=== PATIENT | female | born 1975 | race Asian ===

== ENCOUNTER 2016-11-24 10:24 | Outpatient (CLI) | payer OTHER ==
[~2016-11-24 10:24] MED LIST: PROVENTIL IH ONE
--- NOTE | 2016-11-24 13:00 | XRay Report ---
Lumbar spine 3 views: History: Lumbar pain. Findings: Normal height of vertebral body and intervertebral disc. Normal articular surfaces. No fracture. No soft tissue calcification. Impression: No significant bony or articular abnormality lumbar spine.
--- NOTE | 2016-11-24 16:09 | XRay Report ---
: History: Chest pain. Findings: Cardiomegaly. Trachea is midline. No consolidation, pneumothorax or pleural effusion. Impression: Cardiomegaly. No acute lung changes.
== END 2016-11-24 10:25 | disposition home or self-care (01) ==
LOC: PF 10:24
PROVIDERS: ATTEND Internal Medicine
DX: I10 Essential (primary) hypertension (principal); I51.7 Cardiomegaly; L93.0 Discoid lupus erythematosus; R60.9 Edema, unspecified
CPT/HCPCS: 71020; 72100; 94060; 94640

== ENCOUNTER 2017-01-19 11:41 | Emergency (ER) | payer MEDICAID, OTHER ==
[2017-01-19] MEDS ORDERED: NACL 0.9% 500 ML 500 ML IV ONE (12:29)
[2017-01-19] MEDS ORDERED: VANCOMYCIN/NS 1 GM/250 ML 1 GM/250 ML BAG IV ONE (12:29)
--- NOTE | 2017-01-19 12:32 | Emergency Department Report ---
- General Chief complaint: Extremity Injury, Lower Stated complaint: RT LEG INFECTION Time Seen by Provider: 01/19/17 12:24 Source: patient, EMS Mode of arrival: Stretcher Limitations: Physical Limitation - History of Present Illness Initial comments: lower leg pain and swelling / redness not improving with outpatient abx -: Gradual Location: RLE Severity: moderate Severity scale (0 -10): 2 Consistency: constant Improves with: none Worsens with: none Associated Symptoms: fever/chills. denies: chest pain, confusion, dark stools, diaphoresis, dysuria, easy bruising, shortness of breath, syncope - Related Data Previous Rx's Medication Instructions Recorded Last Taken Type Sulfamethoxazole/Trimethoprim 1 each PO BID #20 tablet 01/19/17 Unknown Rx [Bactrim DS TAB] Allergies Allergy/AdvReac Type Severity Reaction Status Date / Time No Known Allergies Allergy Unverified 11/24/16 10:25 ED Review of Systems ROS: Stated complaint: RT LEG INFECTION Other details as noted in HPI Comment: All other systems reviewed and negative Constitutional: denies: chills, fever Eyes: denies: eye pain, eye discharge, vision change ENT: denies: ear pain, throat pain Respiratory: denies: cough, shortness of breath, wheezing Cardiovascular: denies: chest pain, palpitations Endocrine: no symptoms reported Gastrointestinal: denies: abdominal pain, nausea, diarrhea Genitourinary: denies: urgency, dysuria, discharge Musculoskeletal: denies: back pain, joint swelling, arthralgia Skin: denies: rash, lesions Neurological: denies: headache, weakness, paresthesias Psychiatric: denies: anxiety, depression Hematological/Lymphatic: denies: easy bleeding, easy bruising ED Past Medical Hx - Past Medical History Hx Hypertension: Yes - Surgical History Past Surgical History?: No - Social History Smoking Status: Never Smoker Substance Use Type: None - Medications Home Medications: Home Medications Medication Instructions Recorded Confirmed Last Taken Type Sulfamethoxazole/Trimethoprim 1 each PO BID #20 tablet 01/19/17 Unknown Rx [Bactrim DS TAB] ED Physical Exam - General Limitations: Physical Limitation General appearance: alert, in no apparent distress - Head Head exam: Present: atraumatic, normocephalic - Eye Eye exam: Present: normal appearance - ENT ENT exam: Present: mucous membranes moist - Neck Neck exam: Present: normal inspection - Respiratory Respiratory exam: Present: normal lung sounds bilaterally. Absent: respiratory distress - Cardiovascular Cardiovascular Exam: Present: regular rate, normal rhythm. Absent: systolic murmur, diastolic murmur, rubs, gallop - GI/Abdominal GI/Abdominal exam: Present: soft, normal bowel sounds - Extremities Exam Extremities exam: Present: normal inspection, full ROM, tenderness, pedal edema - Back Exam Back exam: Present: normal inspection - Neurological Exam Neurological exam: Present: alert, oriented X3 - Psychiatric Psychiatric exam: Present: normal affect, normal mood - Skin Skin exam: Present: warm, dry, erythema, vesicles, abrasion, other (right lower leg concistent with developing cellulitis). Absent: rash ED Course Vital Signs 01/19/17 01/19/17 01/19/17 12:00 12:06 14:09 Temperature 98.5 F 97.7 F Pulse Rate 81 69 Respiratory 20 16 Rate Blood Pressure 127/46 Blood Pressure 126/47 [Right] O2 Sat by Pulse 100 100 Oximetry ED Medical Decision Making - Lab Data Result diagrams: 01/19/17 12:53 01/19/17 12:53 - Medical Decision Making Talked to patient for her chronic problem on her right lower leg , dose of vanco given here , no reason fro admission at this time , i consulted dr. jones and he recommends to follow up with wound care Critical care attestation.: If time is entered above; I have spent that time in minutes in the direct care of this critically ill patient, excluding procedure time. ED Disposition Clinical Impression: Cellulitis and abscess of leg Disposition: DISCHARGED TO HOME OR SELFCARE Is pt being admited?: No Does the pt Need Aspirin: No Condition: Good Instructions: Cellulitis (ED) Prescriptions: Sulfamethoxazole/Trimethoprim [Bactrim DS TAB] 1 each PO BID #20 tablet Referrals: PRIMARY CARE, [Primary Care Provider] - 3-5 Days [facility] [Outside] - 3-5 Days Time of Disposition: 15:20
[2017-01-19 13:27] LABS: Albumin 3.1 g/dL (3.9-5); Albumin/Globulin Ratio 0.8 %; BUN/Creatinine Ratio 18.63; Bilirubin,Total 0.5 mg/dL (0.1-1.2); C-Reactive Protein 3.7 mg/dL (0.00-1.30); Calcium 8.5 mg/dL (8.4-10.2); Chloride 97.6 mmol/L (98-107); Potassium 4.5 mmol/L (3.6-5.0); Total Protein 7.2 g/dL (6.3-8.2)
[2017-01-19 14:04] LABS: Erythrocyte Sedimentation Rate 70 mm/Hr (0-20)
[2017-01-19 14:34] LABS: Mean Corpuscular HGB Conc 29 % (30-34); Platelet Count 224 K/mm3 (140-440); White Blood Count 7.5 K/mm3 (4.5-11.0)
[2017-01-19 14:36] LABS: Hematocrit 22.7 % (30.3-42.9); Hemoglobin 6.5 gm/dl (10.1-14.3); Mean Corpuscular Hemoglobin 19 pg (28-32); Mean Corpuscular Volume 65 fl (79-97); Red Cell Distribution Width 30.6 % (13.2-15.2)
[2017-01-19 14:44] LABS: Basophils % (Manual) 0 % (0.0-1.8); Blastocytes % (Manual) 0 %
[2017-01-19 14:45] LABS: Anisocytosis 3+; Hypochromasia 2+; Microcytosis 1+
[2017-01-19 14:46] LABS: Diff Status Complete; Elliptocytes Few; Ovalocytes 1+
[2017-01-19 16:09] VITALS: BP 117/49
== END 2017-01-19 16:09 | disposition home or self-care (01) ==
LOC: ED 11:41
DX: L03.115 Cellulitis of right lower limb (principal); I10 Essential (primary) hypertension
CPT/HCPCS: 36415; 80053; 82140; 85007; 85025; 85652; 86140; 87040; 93971; 96365; 99284; J3370; J7040

== ENCOUNTER 2022-04-12 22:41 | Inpatient (IN) | payer MEDICARE ==
[2022-04-13] MEDS ORDERED: ASPIRIN 81 MG TAB CHEW PO ONE (00:15)
--- NOTE | 2022-04-13 00:20 | Emergency Department Report ---
ED Chest Pain HPI - General Chief Complaint: Chest Pain Stated Complaint: CHEST PAIN X 2 DAYS Time Seen by Provider: 04/13/22 00:02 Source: patient Mode of arrival: Stretcher Limitations: No Limitations - History of Present Illness Initial Comments: Patient is 47 years old morbidly obese female with history of congestive heart failure, lymphedema, hypertension and COPD. Patient brought to the emergency room via EMS from home for evaluation of left-sided chest pain, pressure with no radiation. Patient stated that pain started yesterday. Patient denies any shortness of breath, fever, chills or cough. No abdominal pain, nausea or vomiting. MD Complaint: chest pain - Related Data Previous Rx's Medication Instructions Recorded Last Taken Type Sulfamethoxazole/Trimethoprim 1 each PO BID #20 tablet 01/19/17 Unknown Rx [Bactrim DS TAB] HYDROcodone/APAP 5-325 [[place] 1 each PO Q6HR PRN #14 tablet 08/17/21 Unknown Rx 5/325] Ondansetron [Zofran Odt] 4 mg PO Q8HR PRN #15 tab.rapdis 08/17/21 Unknown Rx Allergies Allergy/AdvReac Type Severity Reaction Status Date / Time No Known Allergies Allergy Unverified 01/28/22 04:16 Heart Score - HEART Score History: Moderately suspicious EKG: Non-specific Age: 45-65 Risk factors: > 3 risk factors or hx of atherosclerotic disease Troponin: < normal limit HEART Score: 5 - EKG Read Time Time EKG Completed: 23:56 EKG Read Time: 23:57 - Critical Actions Critical Actions: 4-6 pts:12-16.6% risk of adverse cardiac event. Should be admitted ED Review of Systems ROS: Stated complaint: CHEST PAIN X 2 DAYS Other details as noted in HPI Comment: All other systems reviewed and negative Constitutional: denies: chills, fever Respiratory: denies: cough, shortness of breath, SOB with exertion Cardiovascular: chest pain, dyspnea on exertion. denies: palpitations Gastrointestinal: denies: abdominal pain, nausea, vomiting, diarrhea, constipation Musculoskeletal: denies: back pain Neurological: denies: headache, weakness, numbness, paresthesias ED Past Medical Hx - Past Medical History Previous Medical History?: Yes Hx Hypertension: Yes Hx Congestive Heart Failure: Yes Hx COPD: Yes Additional medical history: LYMPHEDEMA. MORBID OBESITY - Surgical History Past Surgical History?: No - Social History Smoking Status: Never Smoker Substance Use Type: None - Medications Home Medications: Home Medications Medication Instructions Recorded Confirmed Last Taken Type Sulfamethoxazole/Trimethoprim 1 each PO BID #20 tablet 01/19/17 Unknown Rx [Bactrim DS TAB] HYDROcodone/APAP 5-325 [[place] 1 each PO Q6HR PRN #14 tablet 08/17/21 Unknown Rx 5/325] Ondansetron [Zofran Odt] 4 mg PO Q8HR PRN #15 tab.rapdis 08/17/21 Unknown Rx ED Physical Exam - General Limitations: No Limitations General appearance: alert, in no apparent distress - Head Head exam: Present: atraumatic, normocephalic, normal inspection - Eye Eye exam: Present: normal appearance - ENT ENT exam: Present: normal exam, normal orophraynx, mucous membranes moist - Neck Neck exam: Present: normal inspection, full ROM. Absent: tenderness, meningismus - Respiratory Respiratory exam: Present: normal lung sounds bilaterally - Cardiovascular Cardiovascular Exam: Present: regular rate, normal rhythm, normal heart sounds - GI/Abdominal GI/Abdominal exam: Present: soft, normal bowel sounds. Absent: distended, tenderness, guarding, rebound, rigid, organomegaly, mass, bruit, pulsatile mass, hernia - Extremities Exam Extremities exam: Present: pedal edema, other (Significant lymphedema.). Absent: tenderness - Back Exam Back exam: Present: normal inspection, full ROM. Absent: CVA tenderness (R), CVA tenderness (L) - Neurological Exam Neurological exam: Present: alert, oriented X3, CN II-XII intact - Psychiatric Psychiatric exam: Present: normal mood ED Course Vital Signs 04/12/22 04/13/22 23:53 00:38 Temperature 98 F Pulse Rate 74 70 Respiratory 18 16 Rate Blood Pressure 130/76 Blood Pressure 117/62 [Left] O2 Sat by Pulse 98 98 Oximetry ED Medical Decision Making - Lab Data Result diagrams: 04/13/22 00:33 04/13/22 00:33 - EKG Data -: EKG Interpreted by Tn EKG shows normal: sinus rhythm Rate: normal - EKG Data Interpretation: no acute changes - Radiology Data Radiology results: report reviewed - Medical Decision Making Patient is 47 years old morbidly obese female with history of congestive heart failure, lymphedema, hypertension and COPD. Patient brought to the emergency room via EMS from home for evaluation of left-sided chest pain, pressure with no radiation. Patient stated that pain started yesterday. Patient denies any shortness of breath, fever, chills or cough. No abdominal pain, nausea or vomiting. EKG showed no ST elevation. Labs reviewed and is unremarkable including a ne gative troponin. Patient received aspirin 325 mg. I discussed the patient with Dr. Berman, he agreed to admit the patient to medical service for further management. Critical care attestation.: If time is entered above; I have spent that time in minutes in the direct care of this critically ill patient, excluding procedure time. ED Disposition Clinical Impression: Acute chest pain Disposition: ADMITTED INPATIENT Is pt being admited?: Yes Condition: Stable Instructions: Chest Pain (ED) Referrals: CAROLYN GALINDO MD [Primary Care Provider] - 3-5 Days
[2022-04-13 00:46] LABS: Basophils % (Auto) 0.2 % (0.0-1.8); Eosinophils # (Auto) 0.1 K/mm3 (0.0-0.4); Eosinophils % (Auto) 1.3 % (0.0-4.3); Hematocrit 46.5 % (30.3-42.9); Hemoglobin 14.9 gm/dl (10.1-14.3); Lymphocytes # (Auto) 1.1 K/mm3 (1.2-5.4); Lymphocytes % (Auto) 12.8 % (13.4-35.0); Mean Corpuscular HGB Conc 32 % (30-34); Mean Corpuscular Volume 99 fl (79-97); Monocytes # (Auto) 0.4 K/mm3 (0.0-0.8); Platelet Count 121 K/mm3 (140-440); Red Blood Count 4.69 M/mm3 (3.65-5.03); Red Cell Distribution Width 16.5 % (13.2-15.2)
[2022-04-13 00:57] LABS: Partial Thromboplastin Time 32.7 Sec. (24.2-36.6)
[2022-04-13 01:12] LABS: Alanine Aminotransferase 10 units/L (7-56); Albumin 3.9 g/dL (3.9-5); BUN/Creatinine Ratio 12; Blood Urea Nitrogen 11 mg/dL (7-17); Calcium 9.2 mg/dL (8.4-10.2); Hemolysis Index 19
[2022-04-13 01:23] LABS: Bilirubin,Direct < 0.2 mg/dL (0-0.2)
--- NOTE | 2022-04-13 01:33 | XRay Report ---
CHEST 1 VIEW INDICATION / CLINICAL INFORMATION: Chest Pain. COMPARISON: Chest x-ray 11/24/2016 FINDINGS: SUPPORT DEVICES: None. HEART / MEDIASTINUM: Borderline to mild cardiomegaly. LUNGS / PLEURA: Moderate density in the right hilar region, right hilar mass and/or adenopathy not ex cluded. Lungs otherwise clear. BONES: No significant osseous abnormality. ADDITIONAL FINDINGS: No significant additional findings. IMPRESSION: 1. Right hilar density, mass or adenopathy not excluded. CT chest recommended for further characteriz ation. Signer Name: Dex Coburn II, MD Signed: 04/13/2022 1:29 AM Workstation Name: [id number]
[2022-04-13] MEDS ORDERED: ACETAMINOPHEN 325 MG TAB PO PRN ×2 (03:59)
[2022-04-13] MEDS ORDERED: MAGNESIUM HYDROXIDE (MOM) ORAL LIQD UDC PO PRN (03:59)
[2022-04-13] MEDS ORDERED: MORPHINE 4 MG/1 ML INJ IV PRN (03:59)
[2022-04-13] MEDS ORDERED: ONDANSETRON 4 MG/2 ML INJ IV PRN (03:59)
[2022-04-13] MEDS ORDERED: MORPHINE 2 MG/1 ML INJ IV PRN ×2 (03:59)
[2022-04-13] MEDS ORDERED: traMADol 50 MG TAB PO PRN (03:59)
[2022-04-13] MEDS ORDERED: NITROGLYCERIN 0.4 MG TAB SUBL SL PRN (03:59)
--- NOTE | 2022-04-13 04:05 | History and Physical Report ---
History of Present Illness Date of examination: 04/13/22 Date of admission: 04/13/2022 Chief complaint: Chest pain History of present illness: 47-year-old -[place] female with known history of congestive heart failure, hypertension, COPD, lymphedema brought into the emergency room via EMS for evaluation of chest pain. Patient states that she started having sudden onset of left-sided chest pain. She denies any radiation,no known relieving or exacerbating factors. She denies any fever, no chills, no headache or dizziness and no diaphoresis. Patient denies having similar symptoms in the past. She also indicates she has never had a stress test. Work-up in the emergency room today, chest x-ray shows right hilar density, mass or adenopathy not excluded, CT chest recommended for further characterization. Labs were unremarkable. EKG shows no acute ischemic changes. Patient admitted for chest pain evaluation. Past History Past Medical History: COPD, heart failure, hypertension, other (Morbid obesity, lymphedema) Past Surgical History: No surgical history Social history: no significant social history Family history: no significant family history Medications and Allergies Allergies Allergy/AdvReac Type Severity Reaction Status Date / Time No Known Allergies Allergy Unverified 01/28/22 04:16 Home Medications Medication Instructions Recorded Confirmed Last Taken Type Sulfamethoxazole/Trimethoprim 1 each PO BID #20 tablet 01/19/17 Unknown Rx [Bactrim DS TAB] HYDROcodone/APAP 5-325 [[place] 1 each PO Q6HR PRN #14 tablet 08/17/21 Unknown Rx 5/325] Ondansetron [Zofran Odt] 4 mg PO Q8HR PRN #15 tab.rapdis 08/17/21 Unknown Rx Review of Systems Constitutional: no fever, no chills Ears, nose, mouth and throat: no nasal congestion, no sore throat Cardiovascular: chest pain, no palpitations Respiratory: no cough, no shortness of breath Gastrointestinal: no abdominal pain, no nausea, no vomiting, no diarrhea Genitourinary Female: no pelvic pain, no flank pain, no dysuria, no hematuria Musculoskeletal: no neck pain, no low back pain Integumentary: no rash, no pruritis Neurological: no headaches, no confusion Psychiatric: no anxiety, no depression Endocrine: no polyphagia, no polydipsia, no polyuria, no nocturia Exam - Constitutional Vitals: Temp Pulse Resp BP Pulse Ox 98 F 70 16 117/62 98 04/12/22 23:53 04/13/22 00:38 04/13/22 00:38 04/13/22 00:38 04/13/22 00:38 General appearance: Present: no acute distress, well-nourished, obese (Morbidly obese) - EENT Eyes: Present: PERRL, EOM intact. Absent: scleral icterus ENT: hearing intact, clear oral mucosa, dentition normal - Neck Neck: Present: supple, normal ROM - Respiratory Respiratory effort: normal Respiratory: bilateral: CTA - Cardiovascular Rhythm: regular Heart Sounds: Present: S1 & S2. Absent: gallop, systolic murmur, diastolic murmur, rub, click - Extremities Extremities: no ischemia, pulses intact, pulses symmetrical, normal temperature, normal color, Full ROM Extremity abnormal: edema (Bilateral lymphedema) Peripheral Pulses: within normal limits - Abdominal General gastrointestinal: Present: soft, non-tender, non-distended, normal bowel sounds. Absent: mass - Integumentary Integumentary: Present: clear, warm, dry, normal turgor. Absent: rash - Musculoskeletal Musculoskeletal: strength equal bilaterally - Psychiatric Psychiatric: appropriate mood/affect, intact judgment & insight, memory intact, cooperative - Neurologic Neurologic: CNII-XII intact, no focal deficits, moves all extremities HEART Score - HEART Score EKG: Non-specific Age: 45-65 Risk factors: > 3 risk factors or hx of atherosclerotic disease Troponin: Troponin T < 0.010 ng/mL (0.00-0.029) 04/13/22 00:33 Troponin: < normal limit - Critical Actions Critical Actions: 4-6 pts:12-16.6% risk of adverse cardiac event. Should be admitted Results - Labs CBC & Chem 7: 04/13/22 00:33 04/13/22 00:33 Labs: Abnormal lab results 04/13/22 04/13/22 Range/Units 00:33 00:33 Hgb 14.9 H (10.1-14.3) gm/dl Hct 46.5 H (30.3-42.9) % MCV 99 H (79-97) fl RDW 16.5 H (13.2-15.2) % Plt Count 121 L (140-440) K/mm3 Lymph % (Auto) 12.8 L (13.4-35.0) % Lymph # (Auto) 1.1 L (1.2-5.4) K/mm3 Seg Neutrophils % 80.7 H (40.0-70.0) % Chloride 97.9 L (98-107) mmol/L Glucose 101 H (65-100) mg/dL Lipase 11 L (13-60) units/L Assessment and Plan Assessment: 1. Chest pain 2. Hypertension 3. History of CHF 4. History of COPD 5. Lymphedema 6. Abnormal chest x-ray 7. Morbid obesity Plan: 1. Patient admitted and placed on telemetry. 2. We will check serial cardiac enzymes. Patient placed on daily aspirin, sublingual nitroglycerin and IV morphine as needed for chest pain. 3. Patient will be scheduled for stress test. 4. Consult placed to cardiology for evaluation and recommendations. 5. We will schedule patient for CT of the chest for suspicious right hilar density on chest x-ray. 6. We will resume routine home medications once reconciled. DVT prophylaxis: Subcutaneous heparin CODE STATUS: Full code
[2022-04-13] MEDS: HEPARIN 5,000 UNIT/1 ML VIAL SUB-Q SCH ×2 (06:07→16:10)
[2022-04-13 08:10] LABS: Basophils % (Auto) 0.3 % (0.0-1.8); Eosinophils # (Auto) 0.1 K/mm3 (0.0-0.4); Eosinophils % (Auto) 1.1 % (0.0-4.3); Hematocrit 43.9 % (30.3-42.9); Lymphocytes # (Auto) 1.1 K/mm3 (1.2-5.4); Lymphocytes % (Auto) 13.9 % (13.4-35.0); Mean Corpuscular HGB Conc 32 % (30-34); Mean Corpuscular Volume 100 fl (79-97); Monocytes # (Auto) 0.5 K/mm3 (0.0-0.8); Monocytes % (Auto) 5.9 % (0.0-7.3); Platelet Count 114 K/mm3 (140-440); Red Blood Count 4.41 M/mm3 (3.65-5.03)
[2022-04-13 08:28] LABS: BUN/Creatinine Ratio 13; Blood Urea Nitrogen 10 mg/dL (7-17); Calcium 8.5 mg/dL (8.4-10.2); Hemolysis Index 4
--- NOTE | 2022-04-13 08:35 | Cat Scan Report ---
CT CHEST WITHOUT CONTRAST INDICATION / CLINICAL INFORMATION: Right hilar density seen on chest x-ray. TECHNIQUE: Axial CT images were obtained through the chest without contrast. All CT scans at this [facility] ation are performed using CT dose reduction for ALARA by means of automated exposure control. COMPARISON: Chest radiograph earlier on 04/13/22. CT abdomen dated 08/17/21 FINDINGS: HEART: No significant abnormality. CORONARY ARTERY CALCIFICATION: Absent -- None. THORACIC AORTA: No significant abnormality. MEDIASTINUM / ROBERT: No significant abnormality. Specifically, no right hilar mass or adenopathy. PLEURA: No pleural effusion. No pneumothorax. LUNGS: No acute airspace disease. Mild bibasilar subpleural scarring. ADDITIONAL FINDINGS: None. UPPER ABDOMEN: Multiple calcified gallstones without gallbladder inflammation. SKELETAL SYSTEM: No significant abnormality. IMPRESSION: 1. No right hilar mass or adenopathy. Right hilar prominence on chest radiograph likely relates to pa tient rotation. 2. No acute process in the chest. 3. Cholelithiasis, unchanged. Signer Name: Krystal Canas MD Signed: 04/13/2022 8:30 AM Workstation Name: [id number]
--- NOTE | 2022-04-13 10:59 | Consultation ---
History of Present Illness Consult date: 04/13/22 Requesting physician: RONI DURAN Consult reason: chest pain History of present illness: 47-year-old female with morbid obesity chronic respiratory failure on oxygen states history of congestive heart failure. On Entresto. Has chronic lymphedema. Is able to ambulate with a walker. Patient states having a day of left-sided chest discomfort lasting for a few seconds. No nausea no vomiting no exertional features of symptoms of chest pain. No radiation. No aggravating relieving factors. Patient currently chest pain-free this morning. Patient states was hospitalized last year after pneumonia was told had heart failure. Has not followed with cardiology since. Past History Past Medical History: COPD, heart failure, hypertension, other (Morbid obesity, lymphedema) Past Surgical History: No surgical history Social history: no significant social history Family history: no significant family history Medications and Allergies Allergies Allergy/AdvReac Type Severity Reaction Status Date / Time No Known Allergies Allergy Unverified 01/28/22 04:16 Home Medications Medication Instructions Recorded Confirmed Last Taken Type Sulfamethoxazole/Trimethoprim 1 each PO BID #20 tablet 01/19/17 Unknown Rx [Bactrim DS TAB] HYDROcodone/APAP 5-325 [[place] 1 each PO Q6HR PRN #14 tablet 08/17/21 Unknown Rx 5/325] Ondansetron [Zofran Odt] 4 mg PO Q8HR PRN #15 tab.rapdis 08/17/21 Unknown Rx Active Meds: Active Medications Acetaminophen (Acetaminophen 325 Mg Tab) 650 mg PO Q4H PRN PRN Reason: Pain MILD(1-3)/Fever >100.5/PETTIT Aspirin (Aspirin Ec 325 Mg Tab) 325 mg PO QDAY [facility] Heparin Sodium (Porcine) (Heparin 5,000 Unit/1 Ml Vial) 5,000 unit SUB-Q Q8HR DIAMOND Last Admin: 04/13/22 06:07 Dose: 5,000 unit Magnesium Hydroxide (Magnesium Hydroxide (Mom) Oral Liqd Udc) 30 ml PO Q4H PRN PRN Reason: Constipation Metoprolol Succinate (Metoprolol Succinate Xl 25 Mg Tab) 25 mg PO QDAY [facility] Morphine Sulfate (Morphine 2 Mg/1 Ml Inj) 2 mg IV Q4H PRN PRN Reason: Pain, Moderate (4-6) Morphine Sulfate (Morphine 4 Mg/1 Ml Inj) 4 mg IV Q4H PRN PRN Reason: Pain , Severe (7-10) Morphine Sulfate (Morphine 2 Mg/1 Ml Inj) 2 mg IV Q5MIN PRN PRN Reason: Chest Pain unrelieved by NTG Nitroglycerin (Nitroglycerin 0.4 Mg Tab Subl) 0.4 mg SL Q5M PRN PRN Reason: Chest Pain Ondansetron HCl (Ondansetron 4 Mg/2 Ml Inj) 4 mg IV Q8H PRN PRN Reason: Nausea And Vomiting Sacubitril/Valsartan (Sacubitril/Valsartan 24-26 Mg Tab) 1 each PO BID DIAMOND Sodium Chloride (Sodium Chloride 0.9% 10 Ml Flush Syringe) 10 ml IV BID DIAMOND Sodium Chloride (Sodium Chloride 0.9% 10 Ml Flush Syringe) 10 ml IV PRN PRN PRN Reason: LINE FLUSH Tramadol HCl (Tramadol 50 Mg Tab) 50 mg PO Q6H PRN PRN Reason: Pain, Moderate (4-6) Review of Systems All systems: negative Physical Examination Vital Signs Temp Pulse Resp BP Pulse Ox 98 F 74 18 130/76 98 04/12/22 23:53 04/12/22 23:53 04/12/22 23:53 04/12/22 23:53 04/12/22 23:53 General appearance: no acute distress, well-nourished HEENT: Positive: PERRL, Mucus Membranes Moist Neck: Positive: neck supple, trachea midline Cardiac: Positive: Reg Rate and Rhythm, S1/S2. Negative: Audible Murmur Lungs: Positive: clear to auscultation, Normal Breath Sounds Neuro: Positive: Grossly Intact Abdomen: Positive: Soft, Active Bowel Sounds. Negative: Tender, Distended Female genitourinary: deferred Skin: Positive: Clear Incision: Cardiac Cath Site Musculoskeletal: No Pain, Normal Range of Motion Extremities: Present: normal, edema (Chronic lymphedema changes bilaterally) Results 04/13/22 06:49 04/13/22 06:49 Cardiac Enzymes 04/13/22 Range/Units 00:33 AST 14 (5-40) units/L Coagulation 04/13/22 Range/Units 00:33 PT 14.3 (12.2-14.9) Sec. INR 1.00 (0.87-1.13) APTT 32.7 (24.2-36.6) Sec. CBC 04/13/22 04/13/22 Range/Units 00:33 06:49 WBC 8.4 7.9 (4.5-11.0) K/mm3 RBC 4.69 4.41 (3.65-5.03) M/mm3 Hgb 14.9 H 14.0 (10.1-14.3) gm/dl Hct 46.5 H 43.9 H (30.3-42.9) % Plt Count 121 L 114 L (140-440) K/mm3 Lymph # (Auto) 1.1 L 1.1 L (1.2-5.4) K/mm3 [place] # (Auto) 0.4 0.5 (0.0-0.8) K/mm3 Eos # (Auto) 0.1 0.1 (0.0-0.4) K/mm3 Baso # (Auto) 0.0 0.0 (0.0-0.1) K/mm3 Comprehensive Metabolic Panel 22 04/13/22 Range/Units 00:33 06:49 Sodium 138 139 (137-145) mmol/L Potassium 4.6 4.2 (3.6-5.0) mmol/L Chloride 97.9 L 100.3 (98-107) mmol/L Carbon Dioxide 29 30 (22-30) mmol/L BUN 11 10 (7-17) mg/dL Creatinine 0.9 0.8 (0.6-1.2) mg/dL Glucose 101 H 82 (65-100) mg/dL Calcium 9.2 8.5 (8.4-10.2) mg/dL Direct Bilirubin < 0.2 (0-0.2) mg/dL Indirect Bilirubin 0.4 mg/dL AST 14 (5-40) units/L ALT 10 (7-56) units/L Alkaline Phosphatase 73 (35-129) units/L Total Protein 6.7 (6.3-8.2) g/dL Albumin 3.9 (3.9-5) g/dL EKG interpretations - Telemetry EKG Rhythm: Sinus Rhythm (Sinus rhythm nonspecific ST-T's) Assessment and Plan 47-year-old female morbid obesity on oxygen history of congestive heart failure hypertension chronic lymphedema atypical chest pain. Negative troponin. Negative BNP. Is compensated chronic systolic heart failure. Continue home medication of Entresto. Add low-dose Toprol-XL 25 mg. EKG sinus rhythm nonspe cific ST-T. Patient's heart score is 2. Patient may be discharged from a cardiovascular point of view and follow-up with cardiology. - Patient Problems (1) Morbid obesity due to excess calories Current Visit: Yes Status: Chronic (2) Chronic systolic heart failure Current Visit: Yes Status: Acute (3) Chronic acquired lymphedema Current Visit: Yes Status: Chronic (4) Obesity hypoventilation syndrome Current Visit: Yes Status: Chronic (5) Hypertension Current Visit: Yes Status: Chronic Qualifiers: Hypertension type: primary hypertension Qualified Code(s): I10 - Essential (primary) hypertension (6) Acute chest pain Current Visit: Yes Status: Acute
[2022-04-13] MEDS ORDERED: METOPROLOL SUCCINATE XL 25 MG TAB PO SCH (11:00)
--- NOTE | 2022-04-13 13:57 | Discharge Summary ---
Providers - Providers Date of Admission: 04/13/22 03:59 Date of discharge: 04/13/22 Attending physician: RONI DURAN 04/13/22 Consult to Cardiac Rehabilitation [CONS] Routine Reason For Exam: Phase I 04/13/22 03:59 Consult to Cardiology [CONS] Routine Consulting Provider: MIRYAM WASHINGTON Reason For Exam: chest pain Primary care physician: CAROLYN GALINDO Hospitalization Condition: Stable Hospital course: 47-year-old female morbid obesity on oxygen history of congestive heart failure hypertension chronic lymphedema atypical chest pain. Negative troponin. Negative BNP. Is compensated chronic systolic heart failure. Continue home medication of Entresto. Add low-dose Toprol-XL 25 mg. EKG sinus rhythm nonspecific ST-T. Patient's heart score is 2. Patient may be discharged from a cardiovascular point of view and follow-up with cardiology. Final Discharge Diagnosis (Prints w/discharge instructions): (1) Morbid obesity due to excess calories. Current Visit: Yes Status: Chronic. (2) Chronic systolic heart failure. Current Visit: Yes Status: Acute. (3) Chronic acquired lymphedema. Current Visit: Yes Status: Chronic. (4) Obesity hypoventilation syndrome. Current Visit: Yes Status: Chronic. (5) Hypertension. Current Visit: Yes Status: Chronic. Qualifiers: Hypertension type: primary hypertension Qualified Code(s): I10 - Essential (primary) hypertension. (6) Acute chest pain, likely GERD. Current Visit: Yes Status: Acute Time spent for discharge: 34 minutes Core Measure Documentation - Palliative Care Palliative Care/ Comfort Measures: Not Applicable - Core Measures Any of the following diagnoses?: none Exam - Physical Exam Narrative exam: GENERAL: well-developed and morbidly obese female lying on bed appeared to be in no discomfort. HEENT: Normocephalic. Atraumatic. No conjunctival congestion or icterus. Patient has moist mucous membranes. NECK: Supple. Trachea midline. CHEST/LUNGS: Clear to auscultated bilaterally, breathing nonlabored. No wheezes crackles or rhonchi. HEART/CARDIOVASCULAR: Regular in rate and rhythm. S1 and S2 positive. ABDOMEN: Abdomen is soft, nontender. Patient has normal bowel sounds. SKIN: There is no rash. Warm and dry. NEURO: No focal motor deficit. Follows command. MUSCULOSKELETAL: No joint effusion or tenderness. EXTRIMITY: No edema, no cyanosis or clubbing. PSYCH: Cooperative. - Constitutional Vitals: Temp Pulse Resp BP Pulse Ox 98.2 F 69 20 140/78 99 04/13/22 10:21 04/13/22 10:21 04/13/22 10:21 04/13/22 10:04/13/22 10:21 Plan Activity: advance as tolerated Weight Bearing Status: Weight Bear as Tolerated Diet: low fat, low salt Additional Instructions: Follow-up with Dr. Solares in 2 weeks Follow up with: CAROLYN GALINDO MD [Primary Care Provider] - 3-5 Days Prescriptions: Aspirin EC [Halfprin EC] 81 mg PO QDAY #30 tablet. Metoprolol Xl [Metoprolol SUCCINATE ER TAB] 25 mg PO QDAY #30 tablet
[2022-04-13 16:00] VITALS: BP 139/86
--- NOTE | 2022-04-13 21:39 | Electrocardiograph Report ---
[facility] Test Date: 2022-04-12 Test Time: 23:56:16 Pat Name: HEDY BRUNO Department: Room: A479 1 Gender: F Oil Heaterman: ANITRA : 1975 Requested By: KEN SALAZAR Order Number: [id number] Reading MD: Hunter Saavedra Measurements Intervals [place] Rate: 74 P: 52 GA: 211 QRS: 155 QRSD: 76 T: 31 QT: 374 QTc: 416 Interpretive Statements Sinus rhythm Right axis deviation Low voltage QRS Compared to ECG 08/17/2021 18:02:31 No significant change Electronically Signed On 04-13-2022 21:39:05 EDT by Hunter Saavedra
--- NOTE | 2022-04-13 21:48 | Electrocardiograph Report ---
[facility] Test Date: 2022-04-13 Test Time: 10:32:58 Pat Name: HEDY BRUNO Department: Room: A479 1 Gender: F Fixed Route Bus Operator: ZHANNA : 1975 Requested By: SASHA ROYAL Order Number: [id number] Reading MD: Hunter Saavedra Measurements Intervals [place] Rate: 64 P: 54 MO: 211 QRS: 73 QRSD: 80 T: 29 QT: 398 QTc: 411 Interpretive Statements Sinus rhythm Prolonged MO interval Low voltage, extremity and precordial leads Anteroseptal infarct, age indeterminate Compared to ECG 04/12/2022 23:56:16 No significant change Electronically Signed On 04-13-2022 21:47:46 EDT by Hunter Saavedra
[2022-04-13] MEDS ORDERED: NON-FORMULARY EACH (Sacubitril/Valsartan [Entresto 97 Mg-103 Mg Tablet] 1 EACH Tablet) PO SCH (22:00)
[2022-04-13] MEDS ORDERED: SACUBITRIL/VALSARTAN 24-26 MG TAB PO SCH (22:00)
[2022-04-14] MEDS ORDERED: ASPIRIN EC 325 MG TAB PO SCH (10:00)
== END 2022-04-13 17:47 | disposition home or self-care (01) | DRG 392 ==
LOC: ED 22:41 → 4A 04-13 03:59
PROVIDERS: ADMIT Internal Medicine Geriatric Medicine; ATTEND Internal Medicine
DX: K21.9 Gastro-esophageal reflux disease without esophagitis (principal); E66.2 Morbid (severe) obesity with alveolar hypoventilation; I50.22 Chronic systolic (congestive) heart failure; Z68.44 Body mass index [BMI] 60.0-69.9, adult; I11.0 Hypertensive heart disease with heart failure; J44.9 Chronic obstructive pulmonary disease, unspecified; I89.0 Lymphedema, not elsewhere classified; Z79.899 Other long term (current) drug therapy
CPT/HCPCS: 36415; 71045; 71250; 80048; 80076; 83690; 83880; 84484; 85025; 85610; 85730; 93005; 93306; G0378; C8929; J1644